=== PATIENT | female | born 1935 | race African-American/Black ===

== ENCOUNTER 2022-10-01 07:28 | Inpatient (IN) | payer MEDICARE ==
[~2022-10-01] VITALS: Ht 167.6 cm; Wt 70.3 kg
[2022-10-01] VITALS (16 sets, daily range): BP systolic 129–177; BP diastolic 40–108
[~2022-10-01 07:28] MED LIST: AMLO2.5T45 PO; ASPI-1497 MT; ATOR20TA PO; CLOP75TA15 PO; HYDR-4134 PO; METO-396 MT
[2022-10-01] MEDS ORDERED: DOCU-138 PO (10:47)
[2022-10-01] MEDS ORDERED: METO-385 PO (10:47)
[2022-10-01] MEDS ORDERED: FAMO40TA7 PO (10:47)
[2022-10-01] MEDS ORDERED: LOSA1TAB40 PO (10:47)
[2022-10-01] MEDS ORDERED: FENTANYL CITRATE/PF 50MCG/ML 2ML VIAL ONE (11:04)
[2022-10-01] MEDS ORDERED: MIDAZOLAM HCL 2 MG/2 ML VIAL ONE (11:04)
[2022-10-01] MEDS ORDERED: HEPARIN 1000 UNITS/ML 10ML ONE (11:04)
[2022-10-01] MEDS ORDERED: IODIXANOL 320MG/ML 100 ML BOTTLE IV ONE (11:05)
[2022-10-01] MEDS ORDERED: LIDOCAINE HCL 1% 20ML VIAL (Pyxis) INJ ONE (11:18)
[2022-10-01] MEDS ORDERED: ONDANSETRON HCL 4MG/2ML INJ IV PRN (12:00)
[2022-10-01] MEDS ORDERED: CLOPIDOGREL 75MG TABLET ONE (12:00)
[2022-10-01] MEDS ORDERED: ATROPINE SULFATE 1MG/10ML SYR IV PRN (12:00)
[2022-10-01] MEDS ORDERED: ACETAMINOPHEN 325MG TABLET PO PRN (12:00)
[2022-10-01] MEDS ORDERED: ASPIRIN 325MG EC TABLET PO ONE (12:01)
[2022-10-01] MEDS: AMLODIPINE 10MG TABLET PO SCH (14:07)
[2022-10-01] MEDS: LOSARTAN POTASSIUM 25 MG TABLET PO SCH (14:08)
[2022-10-01] MEDS ORDERED: ALPRAZOLAM 0.5 MG TABLET PO PRN (14:30)
[2022-10-01] MEDS ORDERED: ATORVASTATIN CALCIUM 40MG TABLET PO SCH (21:00)
[2022-10-01] MEDS: METOPROLOL TARTRATE 25MG TABLET PO SCH (21:41)
[2022-10-02 00:48] VITALS: BP 141/86
[2022-10-02 03:33] VITALS: BP 157/56
[2022-10-02 06:14] LABS: BASOPHILS % 0.4 % (0.0-2.0); EOSINOPHILS % 1.4 % (0.0-5.0); HEMATOCRIT. 34.1 % (36.0-48.0); HEMOGLOBIN. 11.4 g/dL (12.0-16.0); LYMPHOCYTES % 29.3 % (20.0-50.0); MEAN CORPUSCULAR HEMOGLOBIN 29.1 pg (28.0-32.0); MEAN CORPUSCULAR VOLUME 86.9 fL (81.0-99.0); MEAN PLATELET VOLUME 10.3 fl (7.4-10.4); MONOCYTES % 8.1 % (2.0-8.0); NEUTROPHILS % 60.8 % (40.0-76.0); PLATELET 193 x1000/uL (130-400); RED BLOOD CELL COUNT 3.92 mill/uL (4.2-5.4); RED CELL DISTRIBUTION WIDTH 14.8 % (11.6-14.6)
[2022-10-02 08:00] VITALS: BP 117/50
[2022-10-02] MEDS ORDERED: HYDRALAZINE HCL 50MG TABLET PO PRN (08:30)
[2022-10-02] MEDS ORDERED: ASPIRIN 325MG TABLET PO SCH (09:00)
[2022-10-02] MEDS ORDERED: CLOPIDOGREL 75MG TABLET PO SCH (09:00)
[2022-10-02] MEDS: LOSARTAN POTASSIUM 25 MG TABLET PO SCH (09:01)
[2022-10-02] MEDS: AMLODIPINE 10MG TABLET PO SCH (09:04)
[2022-10-02] MEDS: METOPROLOL TARTRATE 25MG TABLET PO SCH (09:04)
[2022-10-02 11:14] VITALS: BP 130/51
[2022-10-02 11:23] VITALS: BP 130/51
[2022-10-02 12:00] VITALS: BP 130/51
== END 2022-10-02 12:24 | disposition home health service (06) | DRG 253 ==
LOC: CCL 07:28 → 3WST 07:30
PROVIDERS: ADMIT Specialist; ATTEND Specialist
PROC: 047K3Z1 Dilation of Right Femoral Artery using Drug-Coated Balloon, Percutaneous Approach (ICD-10-PCS; principal; 2022-10-01)
PROC: B41FYZZ Fluoroscopy of Right Lower Extremity Arteries using Other Contrast (ICD-10-PCS; 2022-10-01)
DX: I70.201 Unspecified atherosclerosis of native arteries of extremities, right leg (principal); L97.919 Non-pressure chronic ulcer of unspecified part of right lower leg with unspecified severity; E78.5 Hyperlipidemia, unspecified; I10 Essential (primary) hypertension; M81.0 Age-related osteoporosis without current pathological fracture; Z79.899 Other long term (current) drug therapy; Z79.82 Long term (current) use of aspirin; Z87.891 Personal history of nicotine dependence
CPT/HCPCS: 36415; 37224; 75710; 80048; 83735; 85025; 85347; C1760; C1769; C1893; C1894; C2623; J1644; J2250; J3010; J3490; Q9967